=== PATIENT | male | born 1990 | race Caucasian/White ===

== ENCOUNTER → 2022-03-11 10:12 | Outpatient (BNVA) | payer OTHER, SELFPAY | PROVIDERS: Visit Provider Nurse Practitioner Family | DX: G47.52 REM sleep behavior disorder (principal); G47.50 Parasomnia, unspecified; R40.0 Somnolence; R06.83 Snoring; E66.9 Obesity, unspecified; Z68.30 Body mass index [BMI] 30.0-30.9, adult | CPT/HCPCS: 99202 ==